=== PATIENT | male | born 1985 | race Caucasian/White ===

== ENCOUNTER 2021-09-15 14:50 | Emergency (ER) | payer OTHER ==
[2021-09-15 15:40] VITALS: TEMP 98.5; BMI 25.8
[2021-09-15 17:21] LABS: EOS % 0.1 % (0-4.5); HEMATOCRIT 36.3 % (35.4-49); HEMOGLOBIN 12.1 GM/dL (11.7-16.9); MCH 32.7 pg (25.7-33.7); MCHC 33.3 g/dl (32.0-35.9); MEAN PLT VOLUME 11.3 fl (7.5-11.1); MONO % 7.9 % (3.8-10.2); PLATELET COUNT 80 10^3/uL (134-434); RDW 13.6 % (11.9-15.9)
[2021-09-15 17:37] LABS: CHLORIDE 92 mmol/L (98-107); SODIUM 132 mmol/L (136-145)
[2021-09-15 17:41] LABS: ALBUMIN 3.7 g/dl (3.4-5.0); ANION GAP 16 MMOL/L (8-16); CALCIUM 7.9 mg/dL (8.5-10.1); CO2 25 mmol/L (21-32); GLUCOSE,RANDOM 89 mg/dL (74-106); MAGNESIUM 1.6 mg/dL (1.8-2.4)
[2021-09-15] MEDS ORDERED: MAGNESIUM SULF 50% (8.12 MEQ/2 ML-1 GM VIAL) IVPB ONE (17:43)
[2021-09-15] MEDS ORDERED: LACTATED RINGERS SOLUTION 1000 ML INFUS.BAG IV ONE (17:44)
[2021-09-15 17:45] LABS: BILIRUBIN,TOTAL 1.1 mg/dL (0.2-1); CREATININE 0.6 mg/dL (0.55-1.3); SGOT/AST 245 U/L (15-37); TOT PROT 7.2 g/dl (6.4-8.2)
[2021-09-15 17:47] LABS: ALK PHOS 145 U/L (45-117)
[2021-09-15 18:09] LABS: SGPT/ALT 102 U/L (13-61)
[2021-09-15] MEDS ORDERED: MAGNESIUM 1GM/D5W - 1 GM/100 ML IVPB IVPB ONE (18:20)
[2021-09-15] MEDS ORDERED: chlordiazePOXIDE HCL 25 MG CAPSULE PO ONE (19:39)
[2021-09-15] MEDS ORDERED: chlordiazePOXIDE HCL 25 MG CAPSULE ONE (19:55)
[2021-09-15 21:13] VITALS: BP 122/84; PULSE 88
== END 2021-09-15 21:52 | disposition home or self-care (01) ==
LOC: JER 14:50
PROC: 3E033GC Introduction of Other Therapeutic Substance into Peripheral Vein, Percutaneous Approach (ICD-10-PCS; principal; 2021-09-15)
DX: G40.89 Other seizures (principal)
CPT/HCPCS: 36415; 71046-TC-FY; 80053; 80307; 83735; 85025; 93005; 93010; 99285-25

== ENCOUNTER 2021-09-15 21:34 | Inpatient (IN) | payer OTHER ==
[~2021-09-15 21:34] MED LIST: ACETAMINOPHEN 325 MG TABLET (FP) PO PRN; BENZOCAINE/MENTHOL (CHLORASEPTIC ) LOZENGE MM PRN; BISMUTH SUBSALICYLATE 262 MG/15 ML BTL PO PRN; DICYCLOMINE HCL 10 MG CAPSULE PO PRN; IBUPROFEN 400 MG TABLET (FP) PO PRN; LOPERAMIDE HCL 2 MG CAPSULE PO PRN; LORazepam 1 MG TABLET PO PRN; LORazepam 2 MG/ML SDV VIAL IM ONE; MAG HYDROX/AL HYDROX/SIMETH 30 ML UNIT-DOSE CUP PO PRN; MAGNESIUM CITRATE 300 ML BOTTLE PO PRN; MAGNESIUM HYDROX 2400MG/30ML ORAL SUSPENSION 30 ML CUP PO PRN; NICOTINE 10 MG CARTRIDGE (INHALER) IH PRN; NICOTINE 14 MG/24 HOURS TOPICAL PATCH TD SCH; ONDANSETRON *ODT* 4 MG TABLET SL PRN
[2021-09-15] MEDS ORDERED: LORazepam 1 MG TABLET PO PRN (22:27)
[2021-09-15] MEDS ORDERED: LORazepam 2 MG TABLET ONE (22:47)
[2021-09-15] MEDS: LORazepam 2 MG TABLET PO SCH (22:50)
[2021-09-15 23:24] VITALS: BMI 26.3
[2021-09-16] MEDS: PRENATAL VITAMINS W/ FOLIC ACID TABLET (FP) PO SCH ×2 (00:55→10:29)
[2021-09-16] MEDS: MAGNESIUM OXIDE 400 MG TABLET (FP) PO SCH ×3 (00:56→22:38)
[2021-09-16] MEDS: CALCIUM 500MG/VIT-D 200 UNITS COMBO TABLET (FP) PO SCH ×2 (00:56→22:38)
[2021-09-16] MEDS: MELATONIN 5 MG TABLETS PO SCH ×2 (00:59→22:38)
[2021-09-16] MEDS: THIAMINE HCL 100 MG TABLET (FP) PO SCH ×2 (00:59→22:38)
[2021-09-16] MEDS: LORazepam 2 MG TABLET PO SCH ×6 (01:02→22:38)
[2021-09-16] MEDS: hydrOXYzine PAMOATE 25 MG CAPSULE (FP) PO SCH ×2 (01:04→01:05)
[2021-09-16] MEDS: METHOCARBAMOL 500 MG TABLET PO PRN ×2 (10:30→17:50)
[2021-09-16] MEDS: hydrOXYzine PAMOATE 25 MG CAPSULE (FP) PO PRN ×2 (10:30→17:49)
[2021-09-16 10:59] LABS: ALBUMIN 3.3 g/dl (3.4-5.0)
[2021-09-16 11:03] LABS: BILIRUBIN,DIRECT 0.6 mg/dL (0.0-0.2)
[2021-09-16 11:05] LABS: BILIRUBIN,TOTAL 1.3 mg/dL (0.2-1); TOT PROT 6.5 g/dl (6.4-8.2)
[2021-09-16] MEDS: amLODIPine BESYLATE 5 MG TABLET (FP) PO SCH (15:11)
[2021-09-16] MEDS ORDERED: NICOTINE 10 MG CARTRIDGE (INHALER) IH PRN (18:20)
[2021-09-16] MEDS ORDERED: METOPROLOL TARTRATE 25 MG TABLET (FP) PO ONE (19:11)
[2021-09-17] MEDS ORDERED: LORazepam 1 MG TABLET PO SCH (05:00)
[2021-09-17] MEDS: LORazepam 1 MG TABLET PO SCH ×4 (05:34→22:12)
[2021-09-17 10:07] LABS: SARS-CoV-2 NAA Not Detected (Not Detected)
[2021-09-17] MEDS: PRENATAL VITAMINS W/ FOLIC ACID TABLET (FP) PO SCH (10:27)
[2021-09-17] MEDS: amLODIPine BESYLATE 5 MG TABLET (FP) PO SCH (10:27)
[2021-09-17] MEDS: hydrOXYzine PAMOATE 25 MG CAPSULE (FP) PO PRN (10:27)
[2021-09-17] MEDS: MAGNESIUM OXIDE 400 MG TABLET (FP) PO SCH ×2 (10:27→22:12)
[2021-09-17] MEDS: METHOCARBAMOL 500 MG TABLET PO PRN (10:27)
[2021-09-17] MEDS: MELATONIN 5 MG TABLETS PO SCH (22:12)
[2021-09-17] MEDS: THIAMINE HCL 100 MG TABLET (FP) PO SCH (22:12)
[2021-09-17] MEDS: CALCIUM 500MG/VIT-D 200 UNITS COMBO TABLET (FP) PO SCH (22:12)
[2021-09-18] MEDS ORDERED: LORazepam 0.5 MG TABLET PO PRN ×2
[2021-09-18] MEDS ORDERED: LORazepam 0.5 MG TABLET PO SCH ×2 (05:00)
[2021-09-18 09:28] VITALS: BP 134/95; PULSE 119; TEMP 98.4
[2021-09-19] MEDS ORDERED: LORazepam 0.5 MG TABLET PO ONE ×2 (05:00)
== END 2021-09-18 09:15 | disposition home or self-care (01) | DRG 775 ==
LOC: YASAS 21:34 → Y6N 23:12
PROVIDERS: ADMIT Allergy & Immunology; ATTEND Surgery
PROC: HZ2ZZZZ Detoxification Services for Substance Abuse Treatment (ICD-10-PCS; principal; 2021-09-15)
DX: F10.230 Alcohol dependence with withdrawal, uncomplicated (principal); F17.210 Nicotine dependence, cigarettes, uncomplicated; G25.3 Myoclonus; Z28.310 Unvaccinated for COVID-19
CPT/HCPCS: 36415; 80076; 86780; C9803-CS; U0003; U0005